=== PATIENT | female | born 1975 | race Caucasian/White ===

== ENCOUNTER → 2019-10-17 11:26 | Outpatient (BNVA) | payer MEDICAID, SELFPAY | PROVIDERS: Family Provider Nurse Practitioner; PCP Nurse Practitioner; Visit Provider Nurse Practitioner | DX: Z30.42 Encounter for surveillance of injectable contraceptive (principal); G50.0 Trigeminal neuralgia; F41.9 Anxiety disorder, unspecified; L03.90 Cellulitis, unspecified; E55.9 Vitamin D deficiency, unspecified; L03.211 Cellulitis of face | CPT/HCPCS: 80053; 84443; 85025 ==

== ENCOUNTER → 2020-06-05 10:32 | Outpatient (BNVA) | payer MEDICAID, SELFPAY | PROVIDERS: Family Provider Nurse Practitioner; PCP Nurse Practitioner; Visit Provider Nurse Practitioner | DX: E87.6 Hypokalemia (principal); F41.9 Anxiety disorder, unspecified; E55.9 Vitamin D deficiency, unspecified | CPT/HCPCS: 80053; 82306; 84443; 85025 ==

== ENCOUNTER → 2021-01-09 15:02 | Outpatient (BNVA) | payer MEDICAID, SELFPAY | PROVIDERS: Family Provider Nurse Practitioner; PCP Nurse Practitioner; Visit Provider Nurse Practitioner | DX: E55.9 Vitamin D deficiency, unspecified (principal); E87.6 Hypokalemia; G50.0 Trigeminal neuralgia | CPT/HCPCS: 80053; 82306; 82607; 85025 ==

== ENCOUNTER → 2021-05-29 15:13 | Outpatient (BNVA) | payer MEDICAID, SELFPAY | PROVIDERS: Family Provider Nurse Practitioner; PCP Nurse Practitioner; Visit Provider Nurse Practitioner | DX: M79.642 Pain in left hand (principal); E55.9 Vitamin D deficiency, unspecified; E87.6 Hypokalemia | CPT/HCPCS: 73130; 80053; 82306; 84443 ==

== ENCOUNTER → 2022-04-15 11:08 | Outpatient (BNVA) | payer MEDICAID, SELFPAY | PROVIDERS: Family Provider Nurse Practitioner; PCP Nurse Practitioner; Visit Provider Nurse Practitioner | DX: I10 Essential (primary) hypertension (principal); F41.8 Other specified anxiety disorders; E55.9 Vitamin D deficiency, unspecified; F17.210 Nicotine dependence, cigarettes, uncomplicated; G50.0 Trigeminal neuralgia; J30.89 Other allergic rhinitis; J30.2 Other seasonal allergic rhinitis; Z30.42 Encounter for surveillance of injectable contraceptive; E87.6 Hypokalemia | CPT/HCPCS: 80053; 80061; 82306; 82607; 84443; 85025 ==

== ENCOUNTER 2022-06-01 09:48 | Emergency (ER) | payer MEDICAID, SELFPAY ==
[2022-06-01 09:55] VITALS: BP 209/132; PULSE 113; RESP 20; TEMP 36.8; O2SAT 98; BMI 21.1
--- NOTE | 2022-06-01 10:17 | PC.NURSE ---
attempted visual acuity check, patient distracted with phone, would not cooperate with exam. Stated that she just can not see it.
--- NOTE | 2022-06-01 10:37 | W.ED.EYEPROB ---
HPI - Eye Problem General: Chief complaint: Eye Problems Stated complaint: Left eye irritated Time Seen by Provider: 06/01/22 10:05 History of Present Illness: 47 yo female patient presents with keft eye pain. Pt states this started when she took her contact out 2 days ago. Pt states it feels like something has scratched her eye. Pt denies any head ache or sudden loss of vision. Pt denies any fever. Associated symptoms: Denies fever(s), headache(s), nausea, neck pain or vomiting Review of Systems Const: Denies: fever(s), chills, body aches, change in appetite, change in weight, fatigue, malaise or diaphoresis Eyes: Reports: eye discomfort and eye discharge; Denies: change in vision, blurry vision, blind spots, photophobia, eye redness, floaters or seeing flashes ENMT: Denies: throat pain, uvular edema, enlarged tonsils, odynophagia, hoarseness, mouth pain, swelling of lips/tongue, oral sores, bleeding gums, dental pain, dry mouth, ear or mastoid pain, ear discharge, change in hearing, tinnitus, disequilibrium, nasal discharge, nasal congestion, post nasal drip or sinus pain Card: Denies: chest pain, palpitations, irregular heart rhythm, edema, swelling of feet/ankles, lightheadedness, syncope, pre-syncope, dyspnea on exertion, orthopnea, leg pain with exertion or acrocyanosis Resp: Denies: dyspnea, productive cough, non-productive cough, wheezing, stridor, pain on inspiration, change in phlegm color, hemoptysis or chest congestion GI: Denies: abdominal pain, nausea, vomiting, hematemesis, dysphagia, diarrhea, constipation, GI cramping, change in bowel habits or rectal pain : Denies: flank pain, difficulty voiding, dysuria, urinary frequency, urinary urgency, urinary hesitancy or hematuria Musc: Denies: neck pain, back pain, extremity pain, extremity swelling, joint pain, joint swelling, joint redness, joint warmth or deformity Skin/Breast: Denies: rash, pruritus, erythema, sores, new lesions, changes in skin color or dry skin Neuro: Denies: headache(s), numbness in extremities, weakness in extremities, sensory changes, lack of coordination, difficulty walking, frequent falls, dizziness, vertigo, confusion, behavioral changes, Slurred speech present, difficulty communicating thoughts or seizure-like activity Psych: Denies: anxiety, depression, suicidal ideation or homicidal ideation Endo: Denies: polyuria, polydipsia, tired all the time, cold intolerance, excessive sweating, flushing, hot flashes or heat intolerance Jalil/Lymph: Denies: easy bruising, easy bleeding, petechiae, purpura, enlarged lymph nodes or tender lymph nodes All/Imm: Denies: urticaria, throat swelling, tongue swelling, facial swelling, acute wheezing or itchy eyes PFSH ED PFSH: Medical History Cigarette smoker Depression with anxiety History of Papanicolaou smear of cervix 2016 Hypokalemia On Depo-Provera for contraception Seasonal and perennial allergic rhinitis Trigeminal neuralgia of left side of face Vitamin D deficiency Surgical History History of cervical biopsy 2012 History of colonoscopy negative Family History Grandmother Cancer breast Diabetes Mother Hypertension Social History Smoking and tobacco status: current every day smoker Second hand smoke exposure: Yes Smoking risk assessment/counseling performed?: No Alcohol intake: never Desire information about alcohol rehabilitation?: No Counseling given: No Desire information about substance/drug rehabilitation?: No Counseling given: No Adopted: No Caregiver/support person: No Lives independently: Yes Household members: children Housing: House Marital status: Number of children: 3 service: No Current occupational status: unemployed Pets and animals: Yes History of recent travel: No Current gender identity: Female Physical Exam Const: COMMON NORMALS: no acute distress, average body habitus, patient oriented x3, no limitations, healthy appearing, alert and well nourished HENMT: THROAT: no uvular edema Eye: COMMON NORMALS: Equal, round and reactive pupils present, EOMs intact bilaterally, no scleral icterus, no papilledema, normal visual vega by confrontation and fundi normal bilaterally GENERAL EYE: normal light reflex VISUAL ACUITY: Yes other (see nurses note) PERIORBITAL: periorbital findings normal EYELID: eyelid abnormality (erythemia to upper eyelid) SCLERA: scleral abnormal (abrasion) Laterality of scleral abnormality: positive left PUPIL: Yes Equal, round and reactive pupils present DIRECT OPHTHALMOSCOPY: Yes normal light reflex, Yes no papilledema and Yes fundi normal bilaterally Neuro: COMMON NORMALS: patient oriented x3 SENSORIUM/ORIENTATION: Yes alert Course Vital Signs: Vital signs: Vital Signs Temperature 98.3 F 06/01/22 09:55 Pulse Rate 113 H 06/01/22 09:55 Respiratory Rate 20 H 06/01/22 09:55 Blood Pressure 209/132 06/01/22 09:55 Pulse Oximetry 98 06/01/22 09:55 Oxygen Delivery Me thod 06/01/22 09:55 MDM - Eye Problem Medical Decision Making Patient is well appearing non toxic and in no acute distress. 47 yo female patient presents with keft eye pain. Pt states this started when she took her contact out 2 days ago. Pt states it feels like something has scratched her eye. Pt denies any head ache or sudden loss of vision. Pt denies any fever. We do not have a salcido lamp on;y Ophtalmascope avaible to us. I attempted to stain right ete with fluroscein I was able to visual a cornea abrasion at 11oclock. will start on ERythromycon ointment and have patient is Opthamology tomorrow am Differential Diagnosis Likely corneal abrasion, conjunctivitis, acute iritis, hyphema, periorbital cellulitis, subconjunctival hemorrhage, glaucoma, corneal ulcer and ruptured globe Discharge Plan Discharge Condition: Stable Prescriptions: No Action ranitidine HCl [Zantac] 150 mg tablet 150 mg PO QDAY diclofenac sodium [Voltaren Arthritis Pain] 1 % gel 2 g topical QID Qty: 100 0RF Rx Instructions: apply around left ear valsartan [Diovan] 40 mg tablet 40 mg PO .at bedtime Qty: 30 2RF ergocalciferol (vitamin D2) 1,250 mcg (50,000 unit) capsule 50,000 unit PO .weekly Qty: 4 5RF albuterol sulfate [ProAir HFA] 90 mcg/actuation HFA aerosol inhaler 2 puff INHALATION Q6H PRN (Reason: shortness of breath or wheezing) Qty: 18 5RF ferrous gluconate 324 mg (37.5 mg iron) tablet 324 mg PO QDAY Qty: 30 5RF hydroxyzine pamoate 25 mg capsule 25 mg PO TID PRN (Reason: nausea and vomiting) Qty: 90 5RF ibuprofen 800 mg tablet 800 mg PO TID PRN (Reason: pain) Qty: 90 5RF levocetirizine [Xyzal] 5 mg tablet 5 mg PO DAILY Qty: 30 5RF medroxyprogesterone 150 mg/mL syringe 150 mg IM .every 12 weeks Qty: 1 2RF potassium chloride 20 mEq tablet extended release 20 meq PO DAILY Qty: 30 5RF tizanidine 4 mg tablet 4 mg PO BID PRN (Reason: muscle spasticity) Qty: 60 5RF (DME) BD Integra Syringe 3 mL 25 gauge x 1 syringe See Rx Instructions .Route Qty: 1 2RF Rx Instructions: monthly escitalopram oxalate [Lexapro] 10 mg tablet 10 mg PO DAILY Qty: 30 2RF terbinafine HCl [Lamisil AT] 1 % cream 1 applic topical BID Qty: 30 0RF Referrals: Nayana Mcqueen, INSPECTOR CIRCUITRY NEGATIVE-C [Primary Care Provider] - Coding Level of Care Code ED Hand Spray Operator for Fawn Soares
[2022-06-01 11:22] VITALS: BP 199/122; PULSE 88; RESP 18; O2SAT 98
== END 2022-06-01 11:24 | disposition home or self-care (01) ==
PROVIDERS: Emergency Provider Registered Nurse; PCP Nurse Practitioner
DX: H57.12 Ocular pain, left eye (principal); F17.210 Nicotine dependence, cigarettes, uncomplicated
CPT/HCPCS: 99282

== ENCOUNTER → 2022-08-18 10:32 | Outpatient (BNVA) | payer MEDICAID, SELFPAY | PROVIDERS: PCP Nurse Practitioner; Visit Provider Nurse Practitioner | DX: I10 Essential (primary) hypertension (principal); E55.9 Vitamin D deficiency, unspecified; E61.1 Iron deficiency; F41.8 Other specified anxiety disorders; B35.9 Dermatophytosis, unspecified; J30.2 Other seasonal allergic rhinitis; J30.89 Other allergic rhinitis; G50.0 Trigeminal neuralgia; E87.6 Hypokalemia; M25.50 Pain in unspecified joint; M79.671 Pain in right foot; Z11.59 Encounter for screening for other viral diseases | CPT/HCPCS: 80053; 82306; 83550; 85025; 86705; 86706; 86709; 86803; 86812; 87340 ==

== ENCOUNTER → 2022-08-26 09:47 | Outpatient (BNVA) | payer MEDICAID, SELFPAY | PROVIDERS: PCP Nurse Practitioner; Visit Provider Nurse Practitioner | DX: M79.671 Pain in right foot (principal) | CPT/HCPCS: 72072; 72100; 73630 ==

== ENCOUNTER → 2022-11-04 09:43 | Outpatient (BNVA) | payer MEDICAID, SELFPAY | PROVIDERS: PCP Nurse Practitioner; Visit Provider Internal Medicine | DX: Z15.89 Genetic susceptibility to other disease; M47.9 Spondylosis, unspecified; M41.9 Scoliosis, unspecified; Z11.1 Encounter for screening for respiratory tuberculosis; Z82.61 Family history of arthritis | CPT/HCPCS: 36415; 72202; 80053; 81001; 82784; 83516; 85025; 85651; 86140; 86160; 86162; 86235; 86255; 86376; 86431; 86480; 99204 ==

== ENCOUNTER → 2023-03-12 10:10 | Outpatient (BNVA) | payer MEDICAID, SELFPAY | PROVIDERS: PCP Nurse Practitioner; Visit Provider Internal Medicine | DX: Z15.89 Genetic susceptibility to other disease (principal); Z79.899 Other long term (current) drug therapy; M54.50 Low back pain, unspecified | CPT/HCPCS: 99214 ==

== ENCOUNTER 2023-04-05 10:07 | Outpatient (CLI) | payer MEDICAID, SELFPAY ==
--- NOTE | 2023-04-05 10:15 | US_ITS ---
WS: [id number] RENAL ULTRASOUND HISTORY: I10 - Essential (primary) hypertension COMPARISON: None available. TECHNIQUE: 2-D and color Doppler imaging of the kidney submitted. Right kidney: 10.0 cm x 4.2 cm x 5.2 cm. Cortex: 1.3 cm Normal echogenicity with no hydronephrosis or mass. Left kidney: 10.4 cm x 5.0 cm x 4.6 cm. Cortex: 1.4 cm Normal echogenicity with no hydronephrosis or mass. Aorta: Normal. Urinary Bladder: Normal distention. US/US renal BI* [id number] IMPRESSION: Normal renal ultrasound.
[2023-04-05 10:48] LABS: Basophils # 0.1 10^3/uL (0.0-0.1); Basophils % 0.9 %; Eosinophils % 0.6 %; Hemoglobin 12.3 g/dL (11.5-15.3); Lymphocytes # 1.6 10^3/uL (0.8-4.8); Lymphocytes % 22.8 %; Mean Corpuscular HGB Conc 31.5 g/dL (30.0-36.0); Mean Corpuscular Hemoglobin 27.9 pg (28.0-34.0); Mean Corpuscular Volume 88.4 fl (81-99); Mean Platelet Volume 9.9 fL (7.4-10.4); Monocytes # 0.4 10^3/uL (0.2-0.9); Monocytes % 5.1 %; Neutrophils # 4.88 10^3/uL (1.8-7.7); Neutrophils % 70.5 %; Nucleated Red Blood Cells % 0 %; Platelet Count 292 10^3/cmm (130-400); Red Blood Count 4.41 10^6/uL (4.1-5.3); Red Cell Distribution Width 15.9 % (12.1-15.1); White Blood Count 6.9 10^3/uL (4.0-10.0)
[2023-04-05 10:57] LABS: Alanine Aminotransferase 12 U/L (0-33); Albumin Level 4.2 g/dL (3.5-5.2); Alkaline Phosphatase 108 U/L (35-105); Anion Gap 11.9 (5-19); Aspartate Amino Transferase 16 U/L (0-32); Blood Urea Nitrogen 26 mg/dL (6-20); Calcium 8.9 mg/dL (8.5-10.5); Carbon Dioxide 26 mmol/L (22-29); Chloride 101 mmol/L (98-107); Globulin 2.4 g/dL (1.3-4.6); Glomerular Filtration Rate 89.7 mL/min (90-130); Glucose 86 mg/dL (65-115); Osmolality Calculated 284 mOsm/kg (285-295); Potassium 3.9 mmol/L (3.5-5.1); Sodium 135 mmol/L (136-145); Total Bilirubin 0.2 mg/dL (0.15-1.2); Total Protein 6.6 g/dL (6.6-8.7)
[2023-04-05 11:13] LABS: Erythrocyte Sedimentation Rate 16 mm/hr (0-15)
== END 2023-04-05 10:08 | disposition home or self-care (01) ==
PROVIDERS: Internal Medicine; PCP Nurse Practitioner; Visit Provider Nurse Practitioner
DX: I10 Essential (primary) hypertension (principal); Z79.899 Other long term (current) drug therapy
CPT/HCPCS: 36415; 76770; 80053; 85025; 85651; 86140

== ENCOUNTER → 2023-06-08 11:19 | Outpatient (BNVA) | payer MEDICAID, SELFPAY | PROVIDERS: PCP Nurse Practitioner; Visit Provider Internal Medicine | DX: Z15.89 Genetic susceptibility to other disease (principal); M54.50 Low back pain, unspecified; M46.1 Sacroiliitis, not elsewhere classified; M79.643 Pain in unspecified hand | CPT/HCPCS: 99214 ==

== ENCOUNTER 2023-12-03 18:54 | Emergency (ER) | payer MEDICAID, SELFPAY ==
[2023-12-03 18:57] VITALS: BP 137/92; PULSE 100; RESP 16; TEMP 36.6; O2SAT 97; BMI 22.0
--- NOTE | 2023-12-03 19:24 | ED_ITS ---
HPI - Female Genitourinary 2 General: Chief complaint: Urogenital-Female Stated complaint: flank pain Time Seen by Provider: 12/03/23 18:58 History of Present Illness: Patient presents to the ER by EMS with complaints of 3-day intermittent left flank pain with painful urination. Patient also had nausea vomiting and headache. Patient has a history of migraine headaches. Patient was given 4 mg Zofran and 30 mg Toradol on route by EMS. Patient has a known very large kidney stone that she says is in her kidney but should not be causing her problems. This was found approximately 20 years ago. Review of Systems 2 General: Reports: 10 or more systems reviewed and unremarkable except in HPI and below PFSH ED 2 PFSH: Medical History Lumbago Depression with anxiety Cigarette smoker Seasonal and perennial allergic rhinitis On Depo-Provera for contraception History of Papanicolaou smear of cervix 2016 Hypokalemia Vitamin D deficiency Trigeminal neuralgia of left side of face Surgical History History of colonoscopy negative History of cervical biopsy 2013 Family History Grandmother Cancer breast Diabetes Mother Hypertension Social History Smoking and tobacco/nicotine status: current every day tobacco/nicotine user Second hand smoke exposure: Yes Alcohol intake: never Substance/Drug Use: unknown Adopted: No Caregiver/support person: No Lives independently: Yes Household members: children Housing: House Marital status: Number of children: 3 service: No Current occupational status: unemployed Pets and animals: Yes Do you think of yourself as: Straight/Heterosexual Current gender identity: Female Physical Exam 2 Const: COMMON NORMALS: no acute distress, average body habitus, patient oriented x3, no limitations, healthy appearing, alert and well nourished HENMT: COMMON NORMALS: normocephalic, atraumatic, hearing grossly normal bilaterally, external ears normal, Normal external nose present, moist oral mucous membranes and oropharynx normal HEAD & SCALP: normocephalic and atraumatic NOSE: Normal external nose present EXTERNAL EAR: Yes external ears normal Neck/C-Spine: COMMON NORMALS: no JVD Chest: COMMONS NORMALS: normal inspection of the chest and normal palpation of entire chest wall Resp: COMMON NORMALS: normal respiratory effort, No retractions, No use of accessory muscles and clear to auscultation bilaterally AUSCULTATION: clear to auscultation bilaterally Cardio: COMMON NORMALS: no JVD, regular rate, regular rhythm, S1 normal heart sound present, S2 normal heart sound present, No gallops present (Cardio), No clicks present (Cardio), No murmurs present (Cardio) and No rub (Cardio) R ATE: regular rate RHYTHM: regular rhythm HEART SOUNDS: S1 normal heart sound present and S2 normal heart sound present GI: COMMON NORMALS: Normal to inspection, nondistended, normoactive bowel sounds present, Soft to palpation, non-tender, No hepatosplenomegaly present and no masses PALPATION: Yes Soft to palpation and Yes No hepatosplenomegaly present Neuro: COMMON NORMALS: patient oriented x3 SENSORIUM/ORIENTATION: Yes alert Course 2 Vital Signs: Vital signs: Vital Signs Temperature 97.9 F 12/03/23 18:57 Pulse Rate 90 12/03/23 21:03 Respiratory Rate 16 12/03/23 21:03 Blood Pressure 118/68 12/03/23 21:03 Pulse Oximetry 98 12/03/23 21:03 Oxygen Delivery Me thod Room Air 12/03/23 18:57 MDM - Female Medical Decision Making Lab work on the patient was essentially unremarkable with a white count of 10.6. Urinalysis did show positive for urinary tract infection with blood. We tried to get a CT scan renal stone protocol but patient declined. We will place the patient on Cipro for urinary tract infection. And suggest she gets a CT scan in the future to assess for stones. Differential Diagnosis Likely abdominal pain; Unlikely acute appendicitis, calculus of kidney, constipation, diverticulitis, endometriosis, gastroenteritis, pancreatitis or small bowel obstruction Medical Records I reviewed the patient's medical records. Lab Data I reviewed the patient's lab results. 12/03/23 19:55 12/03/23 19:55 Laboratory Results WBC 10.65 10^3/uL (3.29-11.43) 12/03/23 19:55 RBC 4.24 10^6/uL (3.85-5.65) 12/03/23 19:55 Hgb 12.70 g/dL (11.27-16.99) 12/03/23 19:55 Hct 38.1 % (36-47) 12/03/23 19:55 MCV 89.9 fl (85-98) 12/03/23 19:55 MCH 30.0 pg (27-33) 12/03/23 19:55 MCHC 33.3 g/dL (30-55) 12/03/23 19:55 RDW 13.5 % (12.1-15.1) 12/03/23 19:55 Plt Count 188 10^3/cmm (157-399) 12/03/23 19:55 MPV 10.4 fL (7.4-10.4) 12/03/23 19:55 Neut % (Auto) 87.3 % 12/03/23 19:55 Lymph % (Auto) 5.1 % 12/03/23 19:55 [place] % (Auto) 6.8 % 12/03/23 19:55 Eos % (Auto) 0.0 % 12/03/23 19:55 Baso % (Auto) 0.3 % 12/03/23 19:55 Neut # (Auto) 9.31 10^3/uL (1.8-7.7) H 12/03/23 19: Lymph # (Auto) 0.5 10^3/uL (0.8-4.8) L 12/03/23 19:55 [place] # (Auto) 0.7 10^3/uL (0.2-0.9) 12/03/23 19: Eos # (Auto) 0.0 10^3/uL (0.0-0.8) 12/03/23 19:55 Baso # (Auto) 0.0 10^3/uL (0.0-0.1) 12/03/23 19:55 Nucleated RBC % (auto) 0 % 12/03/23: Nucleated RBCs # 0.0 /100WBC 12/03/23 19:55 Sodium 135 mmol/L (136-145) L 12/03/23 19:55 Potassium 4.2 mmol/L (3.5-5.1) 12/03/23 19:55 Chloride 102 mmol/L (98-107) 12/03/23 19:55 Carbon Dioxide 20 mmol/L (22-29) L 12/03/23 19:55 Anion Gap 17.2 (5-19) 12/03/23 19:55 BUN 15 mg/dL (6-20) 12/03/23 19:55 Creatinine 0.7 mg/dL (0.5-0.9) 12/03/23 19:55 GFR Calculation 89.7 mL/min (90-130) L 12/03/23 19:55 Glucose 121 mg/dL (65-115) H 12/03/23 19:55 Calculated Osmolality 282 mOsm/kg (285-295) L 12/03/23 19:55 Calcium 9.0 mg/dL (8.5-10.5) 12/03/23 19:55 Magnesium 1.9 mg/dL (1.7-2.3) 12/03/23 19:55 Total Bilirubin 0.3 mg/dL (0.15-1.2) 12/03/23 19:55 AST 23 U/L (0-32) 12/03/23 19:55 ALT 9 U/L (0-33) 12/03/23 19:55 Alkaline Phosphatase 116 U/L (35-105) H 12/03/23 19:55 Total Protein 6.6 g/dL (6.6-8.7) 12/03/23 19:55 Albumin 3.6 g/dL (3.5-5.2) 12/03/23 19:55 Globulin 3.0 g/dL (1.3-4.6) 12/03/23 19:55 Urine Color Yellow (Yellow) 12/03/23 19:48 Urine Appearance Hazy (CLEAR) A 12/03/23 19:48 Urine pH 6 (5-7) 12/03/23 19:48 Ur Specific [place] 1.005 (1.005-1.030) 12/03/23 19:48 Urine Protein Trace (Negative) 12/03/23 19:48 Urine Glucose (UA) Norm (Normal) 12/03/23 19:48 Urine Ketones 1+ (Negative) H 12/03/23 19:48 Urine Blood 3+ (Negative) H 12/03/23 19:48 Urine Nitrate Positive (Negative) H 12/03/23 19:48 Urine Bilirubin Neg (Negative) 12/03/23 19:48 Urine Urobilinogen Neg mg/dL (Negative) 12/03/23 19:48 Ur Leukocyte Esterase 2+ (Negative) H 12/03/23 19:48 Urine RBC 5-10 /hpf (0-2) H 12/03/23 19:48 Urine WBC 25-40 /hpf (0-5) H 12/03/23 19:48 Ur Squamous Epith Cells 0-4 /hpf (0-5) H 12/03/23 19:48 Amorphous Sediment Not Reportable 12/03/23 19:48 Urine Bacteria 2+ /hpf (NONE) H 12/03/23 19:48 All radiology interpretation(s) finalized by discharge Discharge Plan Discharge Patient Disposition: Home Clinical Impression: Urinary tract infection Qualifiers: Urinary tract infection type: acute pyelonephritis Qualified Code(s): N10 - Acute pyelonephritis Condition: Stable Prescriptions: New ciprofloxacin HCl 500 mg tablet 500 mg PO Q12H Qty: 20 0RF Pyridium 100 mg tablet 100 mg PO Q8H Qty: 6 0RF No Action sulfasalazine 500 mg tablet 0.5 g PO BID Qty: 60 2RF Rx Instructions: give with food (meal/snack) diclofenac sodium [Voltaren Arthritis Pain] 1 % gel 4 g topical QID Qty: 100 2RF Rx Instructions: apply to single knee, ankle, foot; for foot includes sole/toes/top of foot prednisone 5 mg tablet 5 mg PO DAILY Qty: 30 0RF valsartan [Diovan] 160 mg tablet 160 mg PO DAILY Qty: 30 2RF tizanidine 4 mg tablet 4 mg PO BID PRN (Reason: muscle spasticity) Qty: 60 2RF levocetirizine [Xyzal] 5 mg tablet 5 mg PO DAILY Qty: 30 2RF hydroxyzine pamoate 25 mg capsule 25 mg PO TID PRN (Reason: nausea and vomiting) Qty: 90 2RF escitalopram oxalate [Lexapro] 20 mg tablet 20 mg PO DAILY Qty: 30 2RF albuterol sulfate [ProAir HFA] 90 mcg/actuation HFA aerosol inhaler 2 puff INHALATION Q6H PRN (Reason: shortness of breath or wheezing) Qty: 18 2RF ibuprofen 800 mg tablet 800 mg PO TID PRN (Reason: pain) Qty: 90 2RF Discharge Orders: Discharge ED (Routine); Ordered 12/03/23 Ordered By: Pramod Patel Referrals: Nayana Mcqueen, BEARING INSPECTOR-C [Primary Care Provider] - 1 week Patient Instructions: Flank Pain (ED), Pyelonephritis Activity Restrictions/Additional Instructions: Your evaluation in ER showed you have a urinary tract infection is probably turned into a kidney infection. You will be placed on antibiotics that should clear the infection up. Since you declined a renal stone protocol CT we are on for sure if you have any kidney stones. The kidney stones if you do have may be making this worse. It still suggested you get a CT scan in the future if you change your mind. Otherwise follow-up with your family practice doctor within the next 7 days for further evaluation and treatment. Coding Level of Care Code ED Quality Control Supervisor for Fawn Soares
[2023-12-03 19:32] VITALS: BP 140/86; PULSE 95; RESP 16; O2SAT 97
[2023-12-03] MEDS: sodium chloride 0.9% 1,000 ML 999 ML IV (19:40)
[2023-12-03 20:00] VITALS: BP 110/71; PULSE 75; RESP 16; O2SAT 97
[2023-12-03 20:05] LABS: Basophils % 0.3 %; Hematocrit 38.1 % (36-47); Lymphocytes # 0.5 10^3/uL (0.8-4.8); Lymphocytes % 5.1 %; Mean Corpuscular HGB Conc 33.3 g/dL (30-55); Mean Corpuscular Volume 89.9 fl (85-98); Mean Platelet Volume 10.4 fL (7.4-10.4); Monocytes # 0.7 10^3/uL (0.2-0.9); Monocytes % 6.8 %; Neutrophils # 9.31 10^3/uL (1.8-7.7); Neutrophils % 87.3 %; Nucleated Red Blood Cells % 0 %; Platelet Count 188 10^3/cmm (157-399); Red Blood Count 4.24 10^6/uL (3.85-5.65); Red Cell Distribution Width 13.5 % (12.1-15.1); White Blood Count 10.65 10^3/uL (3.29-11.43)
[2023-12-03 20:27] LABS: Albumin Level 3.6 g/dL (3.5-5.2); Alkaline Phosphatase 116 U/L (35-105); Blood Urea Nitrogen 15 mg/dL (6-20); Carbon Dioxide 20 mmol/L (22-29); Chloride 102 mmol/L (98-107); Creatinine Clr Calc Pharmacy 101.3979; Glomerular Filtration Rate 89.7 mL/min (90-130); Glucose 121 mg/dL (65-115); Magnesium 1.9 mg/dL (1.7-2.3); Osmolality Calculated 282 mOsm/kg (285-295); Sodium 135 mmol/L (136-145); Total Bilirubin 0.3 mg/dL (0.15-1.2); Total Protein 6.6 g/dL (6.6-8.7)
[2023-12-03 20:29] LABS: Alanine Aminotransferase 9 U/L (0-33); Anion Gap 17.2 (5-19); Aspartate Amino Transferase 23 U/L (0-32); Potassium 4.2 mmol/L (3.5-5.1)
[2023-12-03 20:34] LABS: Add Urine Microscopic? YES
[2023-12-03 20:36] LABS: Add Urine Culture? Yes; Bacteria Urine 2+ /hpf; Bilirubin Urine Neg (Negative); Blood Urine 3+ (Negative); Glucose Urine UA Norm (Normal); Ketones Urine 1+ (Negative); Leukocyte Esterase Urine 2+ (Negative); Nitrate Urine Positive (Negative); Protein Urine Trace (Negative); Specific Gravity, Urine 1.005 (1.005-1.030); Squamous Epithelial Cell Urine 0-4 /hpf (0-5); Urine Appearance Hazy (CLEAR); Urine Color Yellow (Yellow); Urobilinogen Urine Neg (Negative); WBC Urine 25-40 /hpf (0-5); pH Urine 6 (5-7)
[2023-12-03] MEDS: ciprofloxacin 500 mg Tablet PO (20:53)
[2023-12-03 21:03] VITALS: BP 118/68; PULSE 90; RESP 16; O2SAT 98
== END 2023-12-03 21:06 | disposition home or self-care (01) ==
PROVIDERS: Emergency Provider Emergency Medicine; PCP Nurse Practitioner
DX: N10 Acute pyelonephritis (principal); Z72.0 Tobacco use
CPT/HCPCS: 80053; 81001; 83735; 85025; 87077; 87086; 87186; 96360; 99284; J7030

== ENCOUNTER 2024-10-27 21:51 | Emergency (ER) | payer MEDICAID, SELFPAY ==
[2024-10-27 21:57] VITALS: BP 144/93; PULSE 94; RESP 14; TEMP 36.8; O2SAT 96
[2024-10-27 23:08] LABS: Covid PCR NEGATIVE (Negative); Influenza A POSITIVE (Negative); Influenza B NEGATIVE (Negative); Respiratory Syncytial Virus Ce NEGATIVE (Negative)
--- NOTE | 2024-10-28 00:27 | W.ED.HA ---
HPI - Headache General: Chief Complaint: Headache Stated Complaint: Migrane,Legs hurt Time Seen by Provider: 10/28/24 00:19 History of Present Illness: Patient presents to the ER with complaint of a migraine headache since yesterday morning. Said her head hurts everywhere in her body just aches and muscles ache. Her TMJ is worse than normal. She has tried [id number] ibuprofen for her headache and this just does not seem to work. She also complains of bilateral hip pain and a tickle in her throat along with just not feeling good overall. Related Data Previous Rx's Medication Instructions Recorded albuterol sulfate 90 mcg/actuation 2 puff inhalation Q6H PRN 03/16/23 aerosol inhaler (ProAir HFA) shortness of breath or wheezing #18 grams escitalopram oxalate 20 mg tablet 20 mg PO DAILY #30 tabs 03/16/23 (Lexapro) hydroxyzine pamoate 25 mg capsule 25 mg PO TID PRN nausea and 03/16/23 vomiting #90 caps ibuprofen 800 mg tablet 800 mg PO TID PRN pain #90 tabs 03/16/23 levocetirizine 5 mg tablet (Xyzal) 5 mg PO DAILY #30 tabs 03/16/23 tizanidine 4 mg tablet 4 mg PO BID PRN muscle spasticity 03/16/23 #60 tabs valsartan 160 mg tablet (Diovan) 160 mg PO DAILY #30 tabs 03/16/23 diclofenac sodium 1 % topical gel 4 g topical QID #100 grams 06/08/23 (Voltaren Arthritis Pain) prednisone 5 mg tablet 5 mg PO DAILY #30 tabs 06/08/23 sulfasalazine 500 mg tablet 0.5 g PO BID #60 tabs 06/08/23 ciprofloxacin HCl 500 mg tablet 500 mg PO Q12H #20 tabs 12/03/23 phenazopyridine 100 mg tablet 100 mg PO Q8H 6 doses #6 tabs 12/03/23 (Pyridium) Allergies Allergy/AdvReac Type Severity Reaction Status Date / Time codeine Allergy vomiting Verified 10/27/24 22:05 morphine Allergy headache Verified 10/27/24 22:05 tramadol Allergy vomiting Verified 10/27/24 22:05 zolpidem [From Ambien] Allergy sleep Verified 10/27/24 22:05 walking Review of Systems General: Reports: 10 or more systems reviewed and unremarkable except in HPI and below PFSH ED PFSH: Medical History Lumbago Depression with anxiety Cigarette smoker Seasonal and perennial allergic rhinitis On Depo-Provera for contraception History of Papanicolaou smear of cervix 2016 Hypokalemia Vitamin D deficiency Trigeminal neuralgia of left side of face Surgical History History of colonoscopy negative History of cervical biopsy 2013 Family History Grandmother Cancer breast Diabetes Mother Hypertension Social History Smoking and tobacco/nicotine status: current every day tobacco/nicotine user Second hand smoke exposure: Yes Alcohol intake: never Substance/Drug Use: unknown Adopted: No Caregiver/support person: No Lives independently: Yes Household members: children Housing: House Marital status: Number of children: 3 service: No Current occupational status: unemployed Pets and animals: Yes Do you think of yourself as: Straight/Heterosexual Current gender identity: Female Physical Exam Const: COMMON NORMALS: no acute distress, average body habitus, patient oriented x3, no limitations, healthy appearing, alert and well nourished HENMT: COMMON NORMALS: normocephalic, atraumatic, hearing grossly normal bilaterally, external ears normal, Normal external nose present and moist oral mucous membranes HEAD & SCALP: normocephalic and atraumatic NOSE: Normal external nose present EXTERNAL EAR: Yes external ears normal Neck/C-Spine: COMMON NORMALS: no JVD Chest: COMMONS NORMALS: normal inspection of the chest and normal palpation of entire chest wall Resp: COMMON NORMALS: normal respiratory effort, No retractions, No use of accessory muscles and clear to auscultation bilaterally AUSCULTATION: clear to auscultation bilaterally Cardio: COMMON NORMALS: no JVD, regular rate, regular rhythm, S1 normal heart sound present, S2 normal heart sound present, No gallops present (Cardio), No clicks present (Cardio), No murmurs present (Cardio) and No rub (Cardio) RATE: regular rate RHYTHM: regular rhythm HEART SOUNDS: S1 normal heart sound present and S2 normal heart sound present GI: COMMON NORMALS: Normal to inspection, nondistended, normoactive bowel sounds present, Soft to palpation, non-tender, No hepatosplenomegaly present and no masses PALPATION: Yes Soft to palpation and Yes No hepatosplenomegaly present Neuro: COMMON NORMALS: patient oriented x3 SENSORIUM/ORIENTATION: Yes alert Course Vital Signs: Vital signs: Vital Signs Temperature 98.3 F 10/27/24 21:57 Pulse Rate 94 10/27/24 21:57 Respiratory Rate 14 10/27/24 21:57 Blood Pressure 144/93 10/27/24 21:57 Pulse Oximetry 96 10/27/24 21:57 MDM - Headache Medical Decision Making Patient is respiratory swab which showed she is influenza A positive. She was given 60 mg Toradol. Patient be discharged home. Lab Data Laboratory Results Coronavirus (PCR) Negative (Negative) 10/27/24 22:20 Influenza A (PCR) Positive (Negative) 10/27/24 22:20 Influenza Type B (PCR) Negative (Negative) 10/27/24 22:20 RSV (PCR) Negative (Negative) 10/27/24 22:20 All radiology interpretation(s) finalized by discharge Discharge Plan Discharge Patient Disposition: Home Clinical Impression: Influenza A Migraine Qualifiers: Migraine type: unspecified Status migrainosus presence: without status migrainosus Intractability: not intractable Qualified Code(s): G43.909 - Migraine, unspecified, not intractable, without status migrainosus Condition: Stable Prescriptions: No Action sulfasalazine 500 mg tablet 0.5 g PO BID Qty: 60 2RF Rx Instructions: give with food (meal/snack) diclofenac sodium [Voltaren Arthritis Pain] 1 % gel 4 g topical QID Qty: 100 2RF Rx Instructions: apply to single knee, ankle, foot; for foot includes sole/toes/top of foot prednisone 5 mg tablet 5 mg PO DAILY Qty: 30 0RF valsartan [Diovan] 160 mg tablet 160 mg PO DAILY Qty: 30 2RF tizanidine 4 mg tablet 4 mg PO BID PRN (Reason: muscle spasticity) Qty: 60 2RF levocetirizine [Xyzal] 5 mg tablet 5 mg PO DAILY Qty: 30 2RF hydroxyzine pamoate 25 mg capsule 25 mg PO TID PRN (Reason: nausea and vomiting) Qty: 90 2RF escitalopram oxalate [Lexapro] 20 mg tablet 20 mg PO DAILY Qty: 30 2RF albuterol sulfate [ProAir HFA] 90 mcg/actuation HFA aerosol inhaler 2 puff INHALATION Q6H PRN (Reason: shortness of breath or wheezing) Qty: 18 2RF ibuprofen 800 mg tablet 800 mg PO TID PRN (Reason: pain) Qty: 90 2RF ciprofloxacin HCl 500 mg tablet 500 mg PO Q12H Qty: 20 0RF Pyridium 100 mg tablet 100 mg PO Q8H Qty: 6 0RF Discharge Orders: Discharge ED (Routine); Ordered 10/28/24 Ordered By: Pramod Patel Referrals: Nayana Mcqueen FNP-C [Primary Care Provider] - 1 week Patient Instructions: Migraine Headache (ED), Influenza (DC) Activity Restrictions/Additional Instructions: Thank you for choosing [facility] for your healthcare needs today. Please realize that you were seen in the emergency department and that we are providing you with an emergency medical screening exam and this may not be a complete and all exclusive of all testing and/or medical workup we may need to determine your element or severity of your illness. It is very important that you follow-up as instructed with your primary care provider or specialist for the additional evaluation and to discuss your medical treatment plan. You may return to the emergency department should you have concerns or if your condition changes or worsens in any way. Coding Level of Care Code ED Feeder Operator Automatic for Fawn Soares
[2024-10-28] MEDS: ketorolac 60 mg/2 mL INJ IM (00:39)
== END 2024-10-28 01:21 | disposition home or self-care (01) ==
PROVIDERS: Emergency Provider Emergency Medicine; PCP Nurse Practitioner
DX: J10.1 Influenza due to other identified influenza virus with other respiratory manifestations (principal); Z11.52 Encounter for screening for COVID-19; Z72.0 Tobacco use
CPT/HCPCS: 87637; 96372; 99284; J1885